=== PATIENT | female | born 1940 | race Caucasian/White ===

== ENCOUNTER → 2017-03-11 | Outpatient (CLI) | payer OTHER ==
[~2017-03-11] MED LIST: ACTONEL PO; ALTACE PO; CALCIUM 250+D T1 TAB PO; EC-NAPROSYN500 MG PO; ESTRACE PO; FOLIC ACID PO; FOSAMAX70 MG PO; IBUPROFEN400 MG PO; LEVAQUIN750 MG PO; LISINOPRIL20 MG PO; LOVASTATIN20 MG PO; METHOTREXATE2.5 MG PO; MOTRIN400 MG PO; NORVASC PO; PREDNISONE PO; PRILOSEC PO; VICODIN 5/1 TAB 5/50 PO; VITAMIN D-32000 UNI1 PO; ZEBETA5 MG PO; ZITHROMAX PO; [UNRECOGNIZED DRUG - OTHER] IV
--- NOTE | ~2017-03-11 | MR164 ---
[facility] A Service of [facility] RADIOLOGY TEXT RESULTS PATIENT: YOVANY BUTCHER LOCATION: [facility] : 44 UNIT #: [id number] AGE: [address]: TOYA STEPHENSON MD SEX: F ORDER DR: [id number] [place] [id number] O MR#: [id number] #: [id number] NAME: YOVANY BUTCHER : 1940 SEX: F STUDY DATE/TIME: 03/11/2017 13:14 UNIT: [facility] ROOM: STUDY DESCRIPTION: MR Shoulder Wo Contrast Lt Attending Physician: Toya Stephenson M.D. Referring Physician: Toya Stephenson M.D. Ordering Physician: Jocelin Not Listed Primary Care Physician: Luca Pena M.D. MRI CENTER REPORT This report is preliminary unless electronic signature is present. EXAM MRI left shoulder 03/11/2017 HISTORY Order states nondisplaced fracture, greater tuberosity, left humerus, with subsequent encounter for fracture. Routine healing. Stiffness of shoulder. Weakness. Status post left proximal humerus fracture with malunion. Considering possible surgery to improve function. History sheet states fell 08/22/2016 onto shoulder. Persistent pain, especially after physical therapy. No surgery. Limited study secondary to motion with repeats performed. COMPARISON No correlative studies. FINDINGS There is minimal AC joint capsuloligamentous thickening, osteophyte formation. Coracoclavicular and coracoacromial ligaments are intact. There is a mal-united proximal humerus fracture involving the greater tuberosity and probably the humeral neck. There is nearly 1 cm of impaction posteriorly. The articular humeral head is rotated posteriorly, resulting in anterior apex angulation. There is signal concerning for, but not diagnostic of avascular necrosis of the mal-united head segment. There is a suspected tiny pinhole full-thickness tear oat the supraspinatus-infraspinatus junction just lateral to the lateral aspect of the acromion. The rotator cuff complex is otherwise within normal limits. There is no muscle atrophy. Biceps and labrum are grossly intact. Glenohumeral joint shows no effusion or high-grade arthrosis. No loose STS. [facility] A Service of [facility] RADIOLOGY TEXT RESULTS PATIENT: YOVANY BUTCHER LOCATION: [facility] : 44 UNIT #: [id number] AGE: [address]: TOYA STEPHENSON MD SEX: F ORDER DR: bodies are noted. No marrow lesion or loose body is noted. There is no muscle atrophy. IMPRESSION 1. 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 2. Tiny pinhole full-thickness tear at the supraspinatus- infraspinatus tendon junction just lateral to the lateral aspect of the acromion. There is no sizable tear or muscle atrophy. 3. Mild AC joint arthrosis. Dictated by... Laura Malloy M.D. THIS IS AN ELECTRONICALLY VERIFIED REPORT Laura Malloy M.D. at 03/13/2017 9:04 AM Sania TD: 03/12/2017 14:08 JOB #: [id number] MRI CENTER REPORT Page 1 of 1
== END | disposition home or self-care (01) ==
LOC: SMRI 03-07 11:00
DX: S42.252P Displaced fracture of greater tuberosity of left humerus, subsequent encounter for fracture with malunion (principal); M25.612 Stiffness of left shoulder, not elsewhere classified; M19.012 Primary osteoarthritis, left shoulder
CPT/HCPCS: 73221